=== PATIENT | male | born 1960 | race Caucasian/White ===

== ENCOUNTER 2019-04-13 18:38 | Emergency (ER) | payer MEDICARE ==
[~2019-04-13] VITALS: Ht 167.6 cm; Wt 94.8 kg
[2019-04-13] MEDS ORDERED: LIDOCAINE HCL 1% LOCAL INJ 20 ML VIAL ONE (19:07)
[2019-04-13] MEDS ORDERED: LIDOCAINE HCL 1% LOCAL INJ 20 ML VIAL INJ STA (19:09)
[2019-04-13] MEDS ORDERED: CEPHALEXIN 500 MG CAP PO ONE ×2 (19:09→19:45)
[2019-04-13] MEDS ORDERED: MUPIROCIN 2% OINT 22 GM TUBE TOP ONE (19:15)
[2019-04-13] MEDS ORDERED: BACITRACIN ZINC 0.9GM TP ONE (19:41)
[2019-04-13] MEDS ORDERED: LIDOCAINE HCL 1% LOCAL INJ 20 ML VIAL INJ ONE (20:00)
[2019-04-13] MEDS ORDERED: TRIMETHOPRIM/SULFAMETHOXAZOLE 160-800 MG TAB PO ONE (20:00)
[2019-04-13 20:39] VITALS: BP 159/90
--- NOTE | 2019-04-13 20:46 | NUR ---
CLEANED AND SPLINTER REMOVED FROM L-FOOT BY DR RICHARD. TRIPLE ANTIBIOTIC OINT APPLIED WITH BANDAID BY DR RICHARD.
--- NOTE | 2019-04-13 20:47 | NUR ---
NO BLEEDING FROM SITE AND PT STATES NO PAIN NOW
== END 2019-04-13 20:15 | disposition home or self-care (01) ==
LOC: FSED 18:38
DX: S91.342A Puncture wound with foreign body, left foot, initial encounter (principal); W45.8XXA Other foreign body or object entering through skin, initial encounter; Y93.01 Activity, walking, marching and hiking; Y92.488 Other paved roadways as the place of occurrence of the external cause
CPT/HCPCS: 28190; 99283; J2001